=== PATIENT | female | born 1945 | race Caucasian/White ===

== ENCOUNTER 2016-10-01 06:18 | Emergency (ER) | payer MEDICARE, OTHER ==
[~2016-10-01] VITALS: Ht 152.4 cm; Wt 58.1 kg
[2016-10-01] MEDS ORDERED: ZOCOR10 MG PO (08:59)
== END 2016-10-01 08:56 | disposition short-term general hospital (02) ==
LOC: ER 06:18
DX: I48.91 Unspecified atrial fibrillation (principal); Z85.3 Personal history of malignant neoplasm of breast
CPT/HCPCS: J1650; J3490